=== PATIENT | female | born 1985 | race African-American/Black ===

== ENCOUNTER → 2017-09-26 | Outpatient (REF) | payer BC ==
[~2017-09-26] MED LIST: ATEN50TA2 PO; MACR100C43 PO
[2017-09-26 14:38] LABS: ALBUMIN 3.8 GM/DL (3.2-5.2); ALBUMIN/GLOBULIN RATIO 1.12 (1.00-1.93); ALKALINE PHOSPHATASE 91 U/L (45-117); ALT/SGPT 23 U/L (12-78); ANION GAP 9 MEQ/L (8-16); AST/SGOT 15 U/L (7-37); BILIRUBIN,TOTAL 0.4 MG/DL (0.2-1.0); BLOOD UREA NITROGEN 9 MG/DL (7-18); CALCIUM LEVEL 8.7 MG/DL (8.5-10.1); CARBON DIOXIDE LEVEL 24 MEQ/L (21-32); CHLORIDE LEVEL 108 MEQ/L (98-107); CHOLESTEROL LEVEL 172 MG/DL (<200); CREATININE FOR GFR 0.86 MG/DL (0.55-1.02); GLOMERULAR FILTRATION RATE > 60.0 (>60); GLUCOSE, FASTING 97 MG/DL (70-105); POTASSIUM SERUM 4.1 MEQ/L (3.5-5.1); SODIUM LEVEL 141 MEQ/L (136-145); TOTAL PROTEIN 7.2 GM/DL (6.4-8.2); TRIGLYCERIDES LEVEL 41 MG/DL (<150)
== END ==
LOC: M LAB REF 13:20
PROVIDERS: ATTEND Nurse Practitioner Adult Health
DX: Z13.9 Encounter for screening, unspecified (principal)

== ENCOUNTER → 2017-10-03 | Outpatient (REF) | payer BC | LOC: M LAB REF 16:35 | PROVIDERS: ATTEND Nurse Practitioner Adult Health | DX: N93.8 Other specified abnormal uterine and vaginal bleeding (principal) ==

== ENCOUNTER → 2017-10-08 | Outpatient (REF) | payer BC | LOC: M LAB REF 13:15 | PROVIDERS: ATTEND Nurse Practitioner Adult Health | DX: N93.8 Other specified abnormal uterine and vaginal bleeding (principal) ==

== ENCOUNTER → 2017-10-12 | Outpatient (CLI) | payer BC ==
--- NOTE | 2017-10-12 08:52 | REP ---
Clinical: Dating and viability. Technique: Transabdominal and transvaginal first trimester obstetrical ultrasound with color Doppler evaluation. Findings: Heterogeneous anteverted uterus measures 9.3 x 7.5 x 6.0 cm and includes right lateral subserosal fibroid measuring 4.6 x 4.4 x 4.6 cm. Endometrial complex is thickened to 19 mm. No discrete intrauterine identified. Maternal ovaries are normal in appearance and vascularity without torsion. Right ovary measures 2.5 x 1.4 x 2.0 cm; RI = 0.63. Left ovary measures 3.3 x 2.0 x 2.0 cm and includes 1.9 cm hemorrhagic corpus luteal cyst; RI = 0.56 no pelvic fluid or adnexal mass lesion. Impression: 1. Heterogeneous anteverted uterus with 4.6 cm right lateral fibroid. 2. No intrauterine appreciated. No pelvic fluid or adnexal mass lesion. Differential diagnosis includes recent , early and less likely ectopic . Correlation with serial HCG levels and repeat ultrasound as necessary. Signed by Leonel Guevara MD 10/12/2017 08:44 A
[2017-10-12 10:56] LABS: HCG, SERUM QUANTITATIVE 3812 MIU/ML
== END ==
LOC: M RAD 07:49
PROVIDERS: ATTEND Obstetrics & Gynecology
DX: Z36.87 Encounter for antenatal screening for uncertain dates (principal); N39.0 Urinary tract infection, site not specified

== ENCOUNTER → 2017-10-17 | Outpatient (CLI) | payer BC ==
--- NOTE | 2017-10-18 09:49 | REP ---
Clinical: Dating and viability. Technique: Transabdominal and transvaginal first trimester obstetrical ultrasound with color Doppler evaluation. Findings: Uterus measures approximately 9.9 x 6.4 x 7.8 cm and a 4.9 x 4.6 x 4.9 cm right lateral fundal fibroid is appreciated. Single live early intrauterine is appreciated. Gestational sac with yolk sac and pole identified. [place]-rump length of 2 mm corresponds to 5 weeks 5 days gestational age with estimated date of delivery 06/14/2018 . heart rate equals 83 beats per minute. No gross abnormalities are identified. Impression: 1. Single live early intrauterine at 5 weeks 5 days gestational age. 2. Mild bradycardia is noted and nonspecific. 3. Complete anatomical assessment should be performed and 19-20 weeks. 4. 4.9 cm right fundal fibroid. Signed by Leonel Guevara MD 10/18/2017 09:41 A
== END ==
LOC: M RAD 16:49
PROVIDERS: ATTEND Obstetrics & Gynecology
DX: Z36.87 Encounter for antenatal screening for uncertain dates (principal)

== ENCOUNTER → 2017-10-17 | Outpatient (CLI) | payer BC | LOC: M LAB 17:49 | PROVIDERS: ATTEND Obstetrics & Gynecology | DX: Z36.89 Encounter for other specified antenatal screening (principal) ==

== ENCOUNTER 2017-10-19 05:31 | Emergency (ER) | payer BC ==
[~2017-10-19] VITALS: Ht 162.6 cm; Wt 95.5 kg
[2017-10-19] MEDS ORDERED: NS 1,000 ML IV ONE (06:30)
[2017-10-19 06:43] LABS: BASO % 0.3 % (0.0-1.0); EOS # 0.1 10^3/uL (0.0-0.50); IMMATURE GRANULOCYTE % 0.3 % (0-0); LYMPH # 1.6 10^3/uL (1.5-4.5); LYMPH % 20.6 % (24.0-44.0); MEAN CORPUSCULAR HEMOGLOBIN 29.7 pg (27.0-33.0); MEAN CORPUSCULAR HGB CONC 33.2 g/dl (32.0-36.5); MEAN CORPUSCULAR VOLUME 89.6 fl (80.0-96.0); MONO # 0.7 10^3/uL (0.0-0.8); MONO % 8.5 % (0.0-5.0); NEUTROPHILS # 5.5 10^3/uL (1.8-7.7); NEUTROPHILS % 69.3 % (36.0-66.0); PLATELET COUNT, AUTOMATED 247 10^3/uL (150-450); RED CELL DISTRIBUTION WIDTH 13.2 % (11.5-14.5); WHITE BLOOD COUNT 7.9 10^3/uL (4.0-10.0)
[2017-10-19 07:07] LABS: ANION GAP 7 MEQ/L (8-16); BLOOD UREA NITROGEN 9 MG/DL (7-18); CALCIUM LEVEL 8.8 MG/DL (8.5-10.1); CARBON DIOXIDE LEVEL 27 MEQ/L (21-32); CHLORIDE LEVEL 107 MEQ/L (98-107); CREATININE FOR GFR 0.76 MG/DL (0.55-1.02); GLOMERULAR FILTRATION RATE > 60.0 (>60); GLUCOSE, FASTING 97 MG/DL (70-105); POTASSIUM SERUM 3.9 MEQ/L (3.5-5.1); SODIUM LEVEL 141 MEQ/L (136-145)
--- NOTE | 2017-10-19 08:08 | REP ---
Clinical: Early with spotting. Comparison: 10/17/2017. Technique: Transabdominal and transvaginal first trimester obstetrical ultrasound with color Doppler evaluation. Findings: Single live early intrauterine is appreciated. Gestational sac with yolk sac and pole identified. [place]-rump length of 2 mm corresponds to 5 weeks 5 days gestational age with estimated date of delivery 06/16/2018 . heart rate equals 96 beats per minute. No gross abnormalities are identified. Impression: 1. Single live early intrauterine at 5 weeks 5 days gestational age. 2. Complete anatomical assessment should be performed and 19-20 weeks. 3. A right fundal fibroid is again identified and unchanged. Signed by Leonel Guevara MD 10/19/2017 08:00 A
[2017-10-19 09:02] VITALS: BP 129/74
== END 2017-10-19 08:57 | disposition home or self-care (01) ==
LOC: EDBD 05:31 → M ED 05:31
DX: O99.89 Other specified diseases and conditions complicating pregnancy, childbirth and the puerperium (principal); R42 Dizziness and giddiness; Z87.891 Personal history of nicotine dependence; Z3A.01 Less than 8 weeks gestation of pregnancy; Z79.899 Other long term (current) drug therapy

== ENCOUNTER → 2017-10-23 | Outpatient (CLI) | payer BC ==
--- NOTE | 2017-10-23 15:14 | REP ---
Clinical: Dating and viability. History of bradycardia. Comparison: 10/19/2017. Technique: Transabdominal first trimester obstetrical ultrasound with color Doppler evaluation Findings: Single live early intrauterine is appreciated. Gestational sac with yolk sac and pole identified. [place]-rump length of 5 mm corresponds to 6 weeks 2 days gestational age with estimated date of delivery 06/16/2018 . heart rate equals 136 beats per minute. Incidental note is made of a 4.3 cm anterior fibroid. Impression: 1. Single live early intrauterine at 6 weeks 2 days gestational age. 2. Complete anatomical assessment should be performed and 19-20 weeks. 3. A 4.3 cm anterior fibroid identified. Signed by Leonel Guevara MD 10/23/2017 03:05 P
== END ==
LOC: M RAD 14:10
PROVIDERS: ATTEND Obstetrics & Gynecology
DX: Z34.81 Encounter for supervision of other normal pregnancy, first trimester (principal)

== ENCOUNTER → 2017-11-06 | Outpatient (CLI) | payer BC ==
--- NOTE | 2017-11-06 15:34 | REP ---
First trimester obstetric sonography: History: 8-week gestation supervision of . Comparison study October 23, 2017 showed a viable 7-wqul-4-day gestation and a 4.3 cm anterior uterine fibroid. Findings: Scanning through the urine filled bladder transabdominally demonstrates a viable single intrauterine gestation in a free-floating lie. [place]-rump length of the embryonic pole is 21 mm today corresponding with an 1-mmip-3-day gestational age estimate. heart rate is recorded at 157 beats per minute. No subchorionic hemorrhage is seen. No extrauterine abnormalities observed. The previously noted fibroid is seen anteriorly in the uterus measuring 4.2 x 4.6 x 4.7 cm. Impression: Viable single intrauterine gestation at 8 weeks 5 days by today's crown-rump length. Expected gestational age estimate based on prior sonography is 8 weeks 4 days. VERONIQUE by prior sonography June 14, 2018. 4.7 cm anterior uterine fibroid seen. No complication is identified. Signed by Dennis Hoskins MD 11/06/2017 04:03 P
== END ==
LOC: M RAD 12:37
PROVIDERS: ATTEND Obstetrics & Gynecology
DX: Z36.87 Encounter for antenatal screening for uncertain dates (principal)

== ENCOUNTER → 2017-11-12 | Outpatient (CLI) | payer BC ==
[~2017-11-12] MED LIST changes: +PRENTAB16 PO; +TERC0.4C PV
[2017-11-12 08:23] LABS: ALT/SGPT 29 U/L (12-78); AST/SGOT 18 U/L (7-37); BILIRUBIN,TOTAL 0.3 MG/DL (0.2-1.0); CREATININE FOR GFR 0.71 MG/DL (0.55-1.02); GLOMERULAR FILTRATION RATE > 60.0 (>60); URIC ACID 3.5 MG/DL (2.6-6.0)
[2017-11-12 11:35] LABS: HBsAg Prenatal NEGATIVE (NEGATIVE)
== END ==
LOC: M LAB 07:07
PROVIDERS: ATTEND Advanced Practice Midwife
DX: Z36.9 Encounter for antenatal screening, unspecified (principal)

== ENCOUNTER 2017-11-13 20:34 | Emergency (ER) | payer BC ==
[~2017-11-13] VITALS: Ht 157.5 cm; Wt 101.8 kg
[~2017-11-13 20:34] MED LIST changes: -PRENTAB16 PO; -TERC0.4C PV
[2017-11-13] MEDS ORDERED: PRENTAB16 PO (20:46)
[2017-11-13] MEDS ORDERED: TERC0.4C PV (20:46)
[2017-11-13 21:47] LABS: BASO % 0.4 % (0.0-1.0); EOS # 0.1 10^3/uL (0.0-0.50); EOS % 0.7 % (0.0-3.0); IMMATURE GRANULOCYTE % 0.1 % (0-0); LYMPH # 2.9 10^3/uL (1.5-4.5); LYMPH % 29.8 % (24.0-44.0); MEAN CORPUSCULAR HEMOGLOBIN 30.2 pg (27.0-33.0); MEAN CORPUSCULAR HGB CONC 34.1 g/dl (32.0-36.5); MEAN CORPUSCULAR VOLUME 88.7 fl (80.0-96.0); MONO # 0.9 10^3/uL (0.0-0.8); MONO % 9.2 % (0.0-5.0); NEUTROPHILS # 5.8 10^3/uL (1.8-7.7); NEUTROPHILS % 59.8 % (36.0-66.0); PLATELET COUNT, AUTOMATED 232 10^3/uL (150-450); RED CELL DISTRIBUTION WIDTH 13.5 % (11.5-14.5); WHITE BLOOD COUNT 9.7 10^3/uL (4.0-10.0)
[2017-11-13 22:24] LABS: ANION GAP 7 MEQ/L (8-16); BLOOD UREA NITROGEN 13 MG/DL (7-18); CALCIUM LEVEL 8.6 MG/DL (8.5-10.1); CARBON DIOXIDE LEVEL 24 MEQ/L (21-32); CHLORIDE LEVEL 108 MEQ/L (98-107); CREATININE FOR GFR 0.64 MG/DL (0.55-1.02); GLOMERULAR FILTRATION RATE > 60.0 (>60); GLUCOSE, FASTING 94 MG/DL (70-105); HCG, SERUM QUANTITATIVE 70766 MIU/ML; POTASSIUM SERUM 3.9 MEQ/L (3.5-5.1); SODIUM LEVEL 139 MEQ/L (136-145)
--- NOTE | 2017-11-13 22:50 | REPUSA ---
Clinical history: vaginal bleeding. Findings: Real-time transabdominal and transvaginal ultrasound images of the pelvis were obtained. Th ere is a single live intrauterine with the crown rump length of 2.8 centimeters. hear t rate measures 163 bpm. There is no evidence of a subchorionic hemorrhage. An anteverted uterus is n oted, measuring 5.0 x 4.3 x 4.6 cm. The uterus demonstrates normal echotexture and echogenicity. The right ovary measures 3.0 x 1.9 x 2.0 cm. The left ovary measures 3.2 x 2.5 x 2.3 cm. No adnexal allan s are seen. There is no evidence of free fluid. Impression: Single live intrauterine measuring 9 weeks 4 days, with estimated due date of . No gross abnormalities appreciated.
[2017-11-13 23:16] VITALS: BP 128/72
== END 2017-11-13 23:17 | disposition home or self-care (01) ==
LOC: M ED 20:34
DX: O20.0 Threatened abortion (principal); Z3A.09 9 weeks gestation of pregnancy; O99.341 Other mental disorders complicating pregnancy, first trimester; F41.9 Anxiety disorder, unspecified; O10.92 Unspecified pre-existing hypertension complicating childbirth; Z79.899 Other long term (current) drug therapy

== ENCOUNTER → 2017-11-28 | Outpatient (REF) | payer BC | LOC: M LAB REF 13:04 | DX: O10.011 Pre-existing essential hypertension complicating pregnancy, first trimester (principal) | CPT/HCPCS: 87086 ==

== ENCOUNTER 2017-12-02 10:30 | Emergency (ER) | payer BC ==
[2017-12-02] MEDS: METOCLOPRAMIDE INJ 10MG/2ML VIAL (J2765) IV (11:15)
[2017-12-02] MEDS: NS 1,000 ML IV (11:15)
[2017-12-02 11:27] LABS: KETONE, URINE AUTO RFX NEGATIVE (NEGATIVE); NITRITE, URINE AUTO RFX NEGATIVE (NEGATIVE); RBC, URINE AUTO RFX 0 /HPF (0-3); SPECIFIC GRAVITY UR AUTO RFX 1.005 (1.002-1.035); SQUAM EPITHELIAL CELL UR AURFX 1 /HPF (0-6); WBC, URINE AUTO RFX 1 /HPF (0-3)
[2017-12-02 11:28] LABS: LEUKOCYTE ESTERASE UR AUTO RFX TRACE (NEGATIVE)
[2017-12-02 11:53] LABS: ANION GAP 9 MEQ/L (8-16); BLOOD UREA NITROGEN 7 MG/DL (7-18); CALCIUM LEVEL 8.9 MG/DL (8.5-10.1); CARBON DIOXIDE LEVEL 24 MEQ/L (21-32); CHLORIDE LEVEL 107 MEQ/L (98-107); CREATININE FOR GFR 0.63 MG/DL (0.55-1.02); GLOMERULAR FILTRATION RATE > 60.0 (>60); GLUCOSE, FASTING 104 MG/DL (70-105); SODIUM LEVEL 140 MEQ/L (136-145)
== END 2017-12-02 12:54 | disposition home or self-care (01) ==
LOC: M ED 10:30
DX: O99.89 Other specified diseases and conditions complicating pregnancy, childbirth and the puerperium (principal); R11.2 Nausea with vomiting, unspecified; R19.7 Diarrhea, unspecified; Z3A.12 12 weeks gestation of pregnancy; Z79.899 Other long term (current) drug therapy
CPT/HCPCS: J2765

== ENCOUNTER 2017-12-12 17:42 | Emergency (ER) | payer BC ==
[2017-12-12] MEDS: METOCLOPRAMIDE 10 MG TAB PO (20:22)
[2017-12-12] MEDS: AZITHROMYCIN 250 MG TAB PO (20:23)
[2017-12-12] MEDS: ACETAMINOPHEN 325 MG TAB PO (20:23)
== END 2017-12-12 21:54 | disposition home or self-care (01) ==
LOC: M ED 21:54
DX: J01.90 Acute sinusitis, unspecified (principal); R11.2 Nausea with vomiting, unspecified; R50.9 Fever, unspecified; I10 Essential (primary) hypertension; F41.9 Anxiety disorder, unspecified; F32.9 Major depressive disorder, single episode, unspecified; R01.1 Cardiac murmur, unspecified; Z20.9 Contact with and (suspected) exposure to unspecified communicable disease
CPT/HCPCS: 99283

== ENCOUNTER → 2017-12-14 | Outpatient (CLI) | payer BC ==
[2017-12-18 08:17] LABS: MUMPS VIRUS IgG ANTIBODY <9.0 AU/mL (Immune >10.9)
[2017-12-18 08:17] LABS: RUBEOLA IgG ANTIBODY <25.0 AU/mL (Immune >29.9)
== END ==
LOC: M LAB 17:50
DX: Z34.81 Encounter for supervision of other normal pregnancy, first trimester (principal)
CPT/HCPCS: 86765

== ENCOUNTER 2017-12-24 13:44 | Emergency (ER) | payer SELFPAY, BC | END 2017-12-24 14:12 | disposition left against medical advice (07) | LOC: M ED 13:44 | DX: J00 Acute nasopharyngitis [common cold] (principal); Z53.21 Procedure and treatment not carried out due to patient leaving prior to being seen by health care provider ==

== ENCOUNTER → 2017-12-31 | Outpatient (CLI) | payer BC ==
[2017-12-31 11:18] LABS: BASO % 0.3 % (0.0-1.0); EOS % 0.4 % (0.0-3.0); HEMATOCRIT 39.3 % (36.0-47.0); HEMOGLOBIN 13.6 g/dl (12.0-16.0); IMMATURE GRANULOCYTE % 0.4 % (0-0); LYMPH # 1.6 10^3/uL (1.5-4.5); LYMPH % 22.8 % (24.0-44.0); MEAN CORPUSCULAR HEMOGLOBIN 31.1 pg (27.0-33.0); MEAN CORPUSCULAR HGB CONC 34.6 g/dl (32.0-36.5); MEAN CORPUSCULAR VOLUME 89.7 fl (80.0-96.0); MONO # 0.4 10^3/uL (0.0-0.8); MONO % 6.2 % (0.0-5.0); NEUTROPHILS # 4.9 10^3/uL (1.8-7.7); NEUTROPHILS % 69.9 % (36.0-66.0); PLATELET COUNT, AUTOMATED 221 10^3/uL (150-450); RED BLOOD COUNT 4.38 10^6/uL (4.00-5.40); RED CELL DISTRIBUTION WIDTH 12.9 % (11.5-14.5)
[2017-12-31 11:32] LABS: INR 1.01; PROTHROMBIN TIME 13.4 SECONDS (12.4-14.5)
[2018-01-03 00:07] LABS: H PYLORI STOOL ANTIGEN Positive (Negative)
== END ==
LOC: M LAB 10:14
DX: P54.8 Other specified neonatal hemorrhages (principal); R19.7 Diarrhea, unspecified; K30 Functional dyspepsia
CPT/HCPCS: 85610

== ENCOUNTER → 2018-01-02 | Outpatient (REF) | payer BC | LOC: M LAB REF 13:07 | DX: Z34.82 Encounter for supervision of other normal pregnancy, second trimester (principal); Z3A.00 Weeks of gestation of pregnancy not specified ==

== ENCOUNTER → 2018-01-23 | Outpatient (CLI) | payer BC | LOC: M RAD 10:45 | DX: Z34.02 Encounter for supervision of normal first pregnancy, second trimester (principal) ==

== ENCOUNTER 2018-02-10 14:07 | Emergency (ER) | payer OTHER ==
[2018-02-10] MEDS: ONDANSETRON 4MG/2ML VIAL (J2405) IV (15:34)
[2018-02-10] MEDS: NS 1,000 ML IV (15:34)
[2018-02-10 15:39] LABS: BASO % 0.2 % (0.0-1.0); EOS # 0.1 10^3/uL (0.0-0.50); EOS % 0.8 % (0.0-3.0); HEMATOCRIT 38.1 % (36.0-47.0); HEMOGLOBIN 13.3 g/dl (12.0-16.0); IMMATURE GRANULOCYTE % 0.5 % (0-3.0); LYMPH # 1.7 10^3/uL (1.5-4.5); LYMPH % 20.7 % (24.0-44.0); MEAN CORPUSCULAR HEMOGLOBIN 31.7 pg (27.0-33.0); MEAN CORPUSCULAR HGB CONC 34.9 g/dl (32.0-36.5); MEAN CORPUSCULAR VOLUME 90.9 fl (80.0-96.0); MONO # 0.8 10^3/uL (0.0-0.8); MONO % 9.8 % (0.0-5.0); NEUTROPHILS # 5.7 10^3/uL (1.8-7.7); PLATELET COUNT, AUTOMATED 222 10^3/uL (150-450); RED BLOOD COUNT 4.19 10^6/uL (4.00-5.40); RED CELL DISTRIBUTION WIDTH 13.2 % (11.5-14.5); WHITE BLOOD COUNT 8.4 10^3/uL (4.0-10.0)
[2018-02-10 15:42] LABS: KETONE, URINE AUTO RFX NEGATIVE (NEGATIVE); LEUKOCYTE ESTERASE UR AUTO RFX NEGATIVE (NEGATIVE); NITRITE, URINE AUTO RFX NEGATIVE (NEGATIVE); RBC, URINE AUTO RFX 1 /HPF (0-3); SPECIFIC GRAVITY UR AUTO RFX 1.003 (1.002-1.035); SQUAM EPITHELIAL CELL UR AURFX 1 /HPF (0-6); WBC, URINE AUTO RFX 0 /HPF (0-3)
[2018-02-10 15:57] LABS: ALBUMIN 2.8 GM/DL (3.2-5.2); ALBUMIN/GLOBULIN RATIO 0.76 (1.00-1.93); ALKALINE PHOSPHATASE 86 U/L (45-117); ALT/SGPT 33 U/L (12-78); ANION GAP 8 MEQ/L (8-16); AST/SGOT 20 U/L (7-37); BILIRUBIN,DIRECT < 0.1 MG/DL (0.0-0.2); BILIRUBIN,TOTAL 0.2 MG/DL (0.2-1.0); BLOOD UREA NITROGEN 5 MG/DL (7-18); CALCIUM LEVEL 8.2 MG/DL (8.5-10.1); CARBON DIOXIDE LEVEL 23 MEQ/L (21-32); CHLORIDE LEVEL 109 MEQ/L (98-107); CREATININE FOR GFR 0.63 MG/DL (0.55-1.30); GLOMERULAR FILTRATION RATE > 60.0 (>60); GLUCOSE, FASTING 89 MG/DL (70-100); LIPASE 128 U/L (73-393); POTASSIUM SERUM 3.8 MEQ/L (3.5-5.1); SODIUM LEVEL 140 MEQ/L (136-145); TOTAL PROTEIN 6.5 GM/DL (6.4-8.2)
[2018-02-10 15:58] LABS: LACTIC ACID SEPSIS PROTOCOL 0.9 MMOL/L (0.4-2.0)
== END 2018-02-10 17:42 | disposition home or self-care (01) ==
LOC: M ED 14:07
DX: O21.9 Vomiting of pregnancy, unspecified (principal); O10.012 Pre-existing essential hypertension complicating pregnancy, second trimester; Z83.49 Family history of other endocrine, nutritional and metabolic diseases; Z82.49 Family history of ischemic heart disease and other diseases of the circulatory system; Z3A.22 22 weeks gestation of pregnancy; Z79.899 Other long term (current) drug therapy
CPT/HCPCS: J2405

== ENCOUNTER → 2018-02-14 | Outpatient (CLI) | payer OTHER | LOC: M RAD 17:40 | DX: O34.12 Maternal care for benign tumor of corpus uteri, second trimester (principal); Z3A.22 22 weeks gestation of pregnancy; D25.9 Leiomyoma of uterus, unspecified | CPT/HCPCS: 76816 ==

== ENCOUNTER 2018-02-18 19:47 | Outpatient (CLI) | payer OTHER, MEDICAID | END 2018-02-18 21:40 | disposition home or self-care (01) | LOC: M LDO 19:47 | DX: O47.02 False labor before 37 completed weeks of gestation, second trimester (principal); Z3A.23 23 weeks gestation of pregnancy | CPT/HCPCS: 76815 ==

== ENCOUNTER → 2018-03-14 | Outpatient (CLI) | payer OTHER, MEDICAID ==
[2018-03-14 08:45] LABS: GLUCOSE, FASTING 90 MG/DL (LESS THAN 95)
[2018-03-14 09:42] LABS: 1 HR GLUCOSE 172 MG/DL (LESS THAN 180)
[2018-03-14 11:17] LABS: 2 HR GLUCOSE 146 MG/DL (LESS THAN 155)
[2018-03-14 12:51] LABS: 3 HR GLUCOSE 109 MG/DL (LESS THAN 140)
== END ==
LOC: M LAB 07:59
DX: O10.012 Pre-existing essential hypertension complicating pregnancy, second trimester (principal); Z3A.00 Weeks of gestation of pregnancy not specified
CPT/HCPCS: 82951

== ENCOUNTER 2018-03-15 00:09 | Outpatient (CLI) | payer OTHER, MEDICAID ==
[2018-03-15 01:31] LABS: HEMATOCRIT 35.5 % (36.0-47.0); HEMOGLOBIN 12.4 g/dl (12.0-15.5); MEAN CORPUSCULAR HEMOGLOBIN 32.2 pg (27.0-33.0); MEAN CORPUSCULAR HGB CONC 34.9 g/dl (32.0-36.5); MEAN CORPUSCULAR VOLUME 92.2 fl (80.0-96.0); PLATELET COUNT, AUTOMATED 232 10^3/uL (150-450); RED BLOOD COUNT 3.85 10^6/uL (4.00-5.40); RED CELL DISTRIBUTION WIDTH 12.9 % (11.5-14.5); WHITE BLOOD COUNT 9.6 10^3/uL (4.0-10.0)
[2018-03-15] MEDS: OMEPRAZOLE 20 MG CAP PO (01:42)
[2018-03-15 01:47] LABS: ALBUMIN 2.9 GM/DL (3.2-5.2); ALBUMIN/GLOBULIN RATIO 0.78 (1.00-1.93); ALKALINE PHOSPHATASE 101 U/L (45-117); ALT/SGPT 20 U/L (12-78); AMYLASE 75 U/L (25-115); ANION GAP 9 MEQ/L (8-16); AST/SGOT 16 U/L (7-37); BILIRUBIN,TOTAL 0.4 MG/DL (0.2-1.0); BLOOD UREA NITROGEN 8 MG/DL (7-18); CALCIUM LEVEL 9.1 MG/DL (8.5-10.1); CARBON DIOXIDE LEVEL 23 MEQ/L (21-32); CHLORIDE LEVEL 107 MEQ/L (98-107); CREATININE FOR GFR 0.72 MG/DL (0.55-1.30); GLOMERULAR FILTRATION RATE > 60.0 (>60); GLUCOSE, FASTING 82 MG/DL (70-100); LIPASE 124 U/L (73-393); POTASSIUM SERUM 3.8 MEQ/L (3.5-5.1); SODIUM LEVEL 139 MEQ/L (136-145); TOTAL PROTEIN 6.6 GM/DL (6.4-8.2)
== END 2018-03-15 02:08 | disposition home or self-care (01) ==
LOC: M LDO 00:09
DX: O99.89 Other specified diseases and conditions complicating pregnancy, childbirth and the puerperium (principal); R10.13 Epigastric pain; Z3A.26 26 weeks gestation of pregnancy
CPT/HCPCS: 59025

== ENCOUNTER → 2018-03-22 | Outpatient (CLI) | payer OTHER | LOC: M RAD 09:51 | DX: Z34.82 Encounter for supervision of other normal pregnancy, second trimester (principal) | CPT/HCPCS: 76816 ==

== ENCOUNTER → 2018-04-11 | Outpatient (CLI) | payer OTHER | LOC: M SMT 10:42 | DX: O10.012 Pre-existing essential hypertension complicating pregnancy, second trimester (principal); Z3A.31 31 weeks gestation of pregnancy | CPT/HCPCS: 76816 ==

== ENCOUNTER → 2018-04-18 | Outpatient (CLI) | payer OTHER ==
[2018-04-18 17:21] LABS: ALBUMIN 2.7 GM/DL (3.2-5.2); ALBUMIN/GLOBULIN RATIO 0.77 (1.00-1.93); ALKALINE PHOSPHATASE 141 U/L (45-117); ALT/SGPT 19 U/L (12-78); AST/SGOT 13 U/L (7-37); BILIRUBIN,DIRECT < 0.1 MG/DL (0.0-0.2); BILIRUBIN,TOTAL 0.3 MG/DL (0.2-1.0); TOTAL PROTEIN 6.2 GM/DL (6.4-8.2)
[2018-04-18 17:25] LABS: APPEARANCE, URINE HAZY (CLEAR); BACTERIA, URINE AUTO 1+ (NEGATIVE); BILIRUBIN, URINE AUTO NEGATIVE (NEGATIVE); BLOOD, URINE BLOOD NEGATIVE (NEGATIVE); COLOR, URINE STRAW (YELLOW); GLUCOSE, URINE (UA) AUTO NEGATIVE (NEGATIVE); KETONE, URINE AUTO NEGATIVE (NEGATIVE); LEUKOCYTE ESTERASE, URINE AUTO NEGATIVE (NEGATIVE); MUCUS, URINE SMALL (NEGATIVE); NITRITE, URINE AUTO NEGATIVE (NEGATIVE); PROTEIN, URINE AUTO NEGATIVE (NEGATIVE); RBC, URINE AUTO 2 /HPF (0-3); SPECIFIC GRAVITY URINE AUTO 1.006 (1.002-1.035); SQUAMOUS EPITHELIAL CELL UR AU 5 /HPF (0-6); UROBILINOGEN, URINE AUTO 0.2 mg/dL (0.0-2.0); WBC, URINE AUTO 2 /HPF (0-3)
[2018-04-21 00:06] LABS: BILE ACIDS FRACTIONATED 11.3 umol/L (4.7-24.5)
== END ==
LOC: M LAB 16:12
DX: O10.012 Pre-existing essential hypertension complicating pregnancy, second trimester (principal); Z3A.00 Weeks of gestation of pregnancy not specified
CPT/HCPCS: 80076

== ENCOUNTER → 2018-04-30 | Outpatient (CLI) | payer OTHER | LOC: M SMT 13:24 | DX: O10.012 Pre-existing essential hypertension complicating pregnancy, second trimester (principal); Z3A.33 33 weeks gestation of pregnancy; D25.9 Leiomyoma of uterus, unspecified; O34.12 Maternal care for benign tumor of corpus uteri, second trimester | CPT/HCPCS: 76816 ==

== ENCOUNTER → 2018-05-06 | Outpatient (CLI) | payer OTHER | LOC: M SMT 11:39 | DX: O10.013 Pre-existing essential hypertension complicating pregnancy, third trimester (principal); O26.613 Liver and biliary tract disorders in pregnancy, third trimester; Z3A.34 34 weeks gestation of pregnancy | CPT/HCPCS: 76819 ==

== ENCOUNTER → 2018-05-13 | Outpatient (CLI) | payer OTHER ==
[2018-05-13] MEDS: BETAMETHASONE SOLUSPAN 6MG/ML INJ 5ML (J0702) IM (16:43)
[2018-05-13 17:09] LABS: HEMATOCRIT 34.7 % (36.0-47.0); MEAN CORPUSCULAR HEMOGLOBIN 31.2 pg (27.0-33.0); MEAN CORPUSCULAR HGB CONC 34.6 g/dl (32.0-36.5); MEAN CORPUSCULAR VOLUME 90.1 fl (80.0-96.0); PLATELET COUNT, AUTOMATED 181 10^3/uL (150-450); RED BLOOD COUNT 3.85 10^6/uL (4.00-5.40); RED CELL DISTRIBUTION WIDTH 12.5 % (11.5-14.5)
[2018-05-13 17:39] LABS: CREATININE,RANDOM URINE 33.3 MG/DL
[2018-05-13 17:39] LABS: ALBUMIN 2.5 GM/DL (3.2-5.2); ALBUMIN/GLOBULIN RATIO 0.69 (1.00-1.93); ALKALINE PHOSPHATASE 155 U/L (45-117); ALT/SGPT 21 U/L (12-78); ANION GAP 12 MEQ/L (8-16); AST/SGOT 12 U/L (7-37); BILIRUBIN,TOTAL 0.2 MG/DL (0.2-1.0); BLOOD UREA NITROGEN 9 MG/DL (7-18); CALCIUM LEVEL 8.9 MG/DL (8.5-10.1); CARBON DIOXIDE LEVEL 20 MEQ/L (21-32); CHLORIDE LEVEL 110 MEQ/L (98-107); GLOMERULAR FILTRATION RATE > 60.0 (>60); GLUCOSE, FASTING 78 MG/DL (70-100); LDH LACTATE DEHYDROGENASE 211 U/L (84-246); POTASSIUM SERUM 4.1 MEQ/L (3.5-5.1); SODIUM LEVEL 142 MEQ/L (136-145); TOTAL PROTEIN 6.1 GM/DL (6.4-8.2); TOTAL PROTEIN,RANDOM URINE 8.8 MG/DL (0.0-12.0); URIC ACID 4.3 MG/DL (2.6-6.0)
== END ==
LOC: M LDO 15:28
DX: O16.3 Unspecified maternal hypertension, third trimester (principal); O36.8130 Decreased fetal movements, third trimester, not applicable or unspecified; O09.513 Supervision of elderly primigravida, third trimester; O34.13 Maternal care for benign tumor of corpus uteri, third trimester; Z3A.35 35 weeks gestation of pregnancy
CPT/HCPCS: J0702

== ENCOUNTER → 2018-05-13 | Outpatient (REF) | payer OTHER | LOC: M LAB REF 16:53 | DX: O10.013 Pre-existing essential hypertension complicating pregnancy, third trimester (principal) ==

== ENCOUNTER 2018-05-14 16:45 | Outpatient (CLI) | payer OTHER ==
[2018-05-14] MEDS: BETAMETHASONE SOLUSPAN 6MG/ML INJ 5ML (J0702) IM (17:13)
== END 2018-05-14 18:15 | disposition home or self-care (01) ==
LOC: M LDO 16:45
DX: O10.013 Pre-existing essential hypertension complicating pregnancy, third trimester (principal); Z3A.35 35 weeks gestation of pregnancy
CPT/HCPCS: J0702

== ENCOUNTER 2018-05-18 21:10 | Outpatient (CLI) | payer OTHER ==
[2018-05-18 22:11] LABS: HEMATOCRIT 32.8 % (36.0-47.0); HEMOGLOBIN 11.5 g/dl (12.0-15.5); MEAN CORPUSCULAR HEMOGLOBIN 31.3 pg (27.0-33.0); MEAN CORPUSCULAR HGB CONC 35.1 g/dl (32.0-36.5); MEAN CORPUSCULAR VOLUME 89.4 fl (80.0-96.0); PLATELET COUNT, AUTOMATED 184 10^3/uL (150-450); RED BLOOD COUNT 3.67 10^6/uL (4.00-5.40); RED CELL DISTRIBUTION WIDTH 12.6 % (11.5-14.5); WHITE BLOOD COUNT 10.1 10^3/uL (4.0-10.0)
[2018-05-18 22:20] LABS: TOTAL PROTEIN,RANDOM URINE 31.9 MG/DL (0.0-12.0)
[2018-05-18 22:35] LABS: ALT/SGPT 16 U/L (12-78); AMYLASE 81 U/L (25-115); AST/SGOT 9 U/L (7-37); BILIRUBIN,TOTAL 0.3 MG/DL (0.2-1.0); CREATININE FOR GFR 0.78 MG/DL (0.55-1.30); GLOMERULAR FILTRATION RATE > 60.0 (>60); LDH LACTATE DEHYDROGENASE 212 U/L (84-246); LIPASE 214 U/L (73-393); URIC ACID 4.3 MG/DL (2.6-6.0)
[2018-05-18] MEDS: ACETAMINOPHEN 500 MG TAB PO (22:35)
== END 2018-05-19 01:05 | disposition home or self-care (01) ==
LOC: M LDO 21:10
DX: O26.893 Other specified pregnancy related conditions, third trimester (principal); R51 Headache; Z3A.35 35 weeks gestation of pregnancy
CPT/HCPCS: 76815

== ENCOUNTER 2018-05-21 05:34 | Inpatient (IN) | payer OTHER ==
[2018-05-21] MEDS: LR 1,000 ML IV ×4 (06:00→18:54)
[2018-05-21] MEDS: BICITRA 30ML SOLN UDC PO (06:00)
[2018-05-21 06:45] LABS: HEMATOCRIT 35.3 % (36.0-47.0); HEMOGLOBIN 12.1 g/dl (12.0-15.5); MEAN CORPUSCULAR HEMOGLOBIN 30.9 pg (27.0-33.0); MEAN CORPUSCULAR HGB CONC 34.3 g/dl (32.0-36.5); MEAN CORPUSCULAR VOLUME 90.3 fl (80.0-96.0); PLATELET COUNT, AUTOMATED 181 10^3/uL (150-450); RED BLOOD COUNT 3.91 10^6/uL (4.00-5.40); RED CELL DISTRIBUTION WIDTH 12.7 % (11.5-14.5); WHITE BLOOD COUNT 9.5 10^3/uL (4.0-10.0)
[2018-05-21] MEDS ORDERED: LR 1,000 ML IV (07:00)
[2018-05-21] MEDS ORDERED: MORPHINE PRES-FREE INJ 10 MG/10 ML VIAL (J2274) As Ordered (07:42)
[2018-05-21] MEDS ORDERED: OXYTOCIN INJ 10 UNITS/ML VIAL (J2590) As Ordered ×6 (07:43→09:56)
[2018-05-21] MEDS ORDERED: NALOXONE INJ 0.4 MG/1 ML VIAL (J2310) IV ×2 (08:21)
[2018-05-21] MEDS ORDERED: NALBUPHINE HCL 10 MG/ML AMP (J2300) IV (08:21)
[2018-05-21] MEDS ORDERED: ePHEDrine SULFATE 25 MG/5 ML(5MG/ML) SYRINGE As Ordered (08:31)
[2018-05-21] MEDS: PRENATAL VITAMINS CHEWABLE TABLET PO (09:00)
[2018-05-21] MEDS: DOCUSATE SODIUM 100 MG CAP PO ×2 (09:00→21:35)
[2018-05-21] MEDS ORDERED: MIDAZOLAM INJ 2 MG/2 ML VIAL (J2250) As Ordered (09:14)
[2018-05-21] MEDS ORDERED: KETAMINE HCL 200 MG/20 ML VIAL As Ordered (09:14)
[2018-05-21] MEDS ORDERED: fentaNYL 100 MCG/2 ML INJECTION (J3010) As Ordered ×2 (09:20→10:50)
[2018-05-21 09:38] LABS: CORD GAS ABE V 1.4; CORD GAS HCO3 V 27.9 MEQ/L; CORD GAS O2 SAT V 68.9 %; CORD GAS PCO2 V 50.4 mmHg; CORD GAS PH V 7.361 UNITS; CORD GAS PO2 V 28.6 mmHg; CORD GAS SBC V 24.8 MEQ/L; CORD GAS TCO2 V 29.4 MEQ/L
[2018-05-21] MEDS ORDERED: PROPOFOL 200 MG/20 ML VIAL As Ordered (09:51)
[2018-05-21] MEDS: OXYTOCIN DRIP 30 UNITS in APPROPRIATE DILUENT 1 EA IV (10:59)
[2018-05-21] MEDS ORDERED: PROMETHAZINE 25 MG TAB PO (11:00)
[2018-05-21] MEDS ORDERED: RHOGAM 300 MCG (1500 IU) INJ (J2790) IM (11:00)
[2018-05-21] MEDS ORDERED: MEASLES,MUMPS,RUBELLA VACCINE INJ (MMR-II) (90707) SC (11:00)
[2018-05-21] MEDS ORDERED: ONDANSETRON 4MG/2ML VIAL (J2405) IV ×2 (11:00→11:15)
[2018-05-21] MEDS ORDERED: PERCOCET 5MG/325MG TAB PO ×2 (11:00→11:15)
[2018-05-21] MEDS ORDERED: METOCLOPRAMIDE INJ 10MG/2ML VIAL (J2765) IV (11:15)
[2018-05-21] MEDS ORDERED: fentaNYL 100 MCG/2 ML INJECTION (J3010) IV (11:15)
[2018-05-21] MEDS ORDERED: KETOROLAC 30 MG/ML VIAL (J1885) As Ordered (11:45)
[2018-05-21] MEDS: KETOROLAC 30 MG/ML VIAL (J1885) IV ×3 (11:50→22:20)
[2018-05-21] MEDS: METOCLOPRAMIDE INJ 10MG/2ML VIAL (J2765) IV (14:30)
[2018-05-21] MEDS: ONDANSETRON 4MG/2ML VIAL (J2405) IV (16:29)
[2018-05-21 18:31] LABS: HEMATOCRIT 31.5 % (36.0-47.0); HEMOGLOBIN 10.7 g/dl (12.0-15.5); MEAN CORPUSCULAR HEMOGLOBIN 31.3 pg (27.0-33.0); MEAN CORPUSCULAR VOLUME 92.1 fl (80.0-96.0); PLATELET COUNT, AUTOMATED 156 10^3/uL (150-450); RED BLOOD COUNT 3.42 10^6/uL (4.00-5.40); RED CELL DISTRIBUTION WIDTH 13.1 % (11.5-14.5); WHITE BLOOD COUNT 15.4 10^3/uL (4.0-10.0)
[2018-05-21] MEDS: PROMETHAZINE INJ 25 MG/ML VIAL (J2550) IV (19:30)
[2018-05-21] MEDS: PERCOCET 5MG/325MG TAB PO (21:35)
[2018-05-22] MEDS: PROMETHAZINE INJ 25 MG/ML VIAL (J2550) IV (01:37)
[2018-05-22] MEDS: LR 1,000 ML IV ×3 (02:45→10:54)
[2018-05-22] MEDS: KETOROLAC 30 MG/ML VIAL (J1885) IV (04:46)
[2018-05-22 07:18] LABS: HEMATOCRIT 24.6 % (36.0-47.0); MEAN CORPUSCULAR HEMOGLOBIN 30.8 pg (27.0-33.0); MEAN CORPUSCULAR HGB CONC 33.3 g/dl (32.0-36.5); MEAN CORPUSCULAR VOLUME 92.5 fl (80.0-96.0); PLATELET COUNT, AUTOMATED 142 10^3/uL (150-450); RED BLOOD COUNT 2.66 10^6/uL (4.00-5.40); RED CELL DISTRIBUTION WIDTH 13.2 % (11.5-14.5); WHITE BLOOD COUNT 12.7 10^3/uL (4.0-10.0)
[2018-05-22 07:26] LABS: HEMOGLOBIN 8.2 g/dl (12.0-15.5)
[2018-05-22] MEDS: LABETALOL 100 MG TAB PO ×2 (09:00→21:00)
[2018-05-22] MEDS: DOCUSATE SODIUM 100 MG CAP PO ×2 (09:20→21:07)
[2018-05-22] MEDS: FERROUS SULFATE 325MG TAB PO ×2 (09:20→21:08)
[2018-05-22] MEDS: PRENATAL VITAMINS CHEWABLE TABLET PO (09:20)
[2018-05-22] MEDS: PERCOCET 5MG/325MG TAB PO ×2 (09:21→15:11)
[2018-05-22] MEDS: IBUPROFEN 800 MG TAB PO ×2 (13:13→21:08)
[2018-05-22] MEDS: diphenhydrAMINE 50 MG CAP PO (23:30)
[2018-05-22] MEDS: ACETAMINOPHEN TAB 650MG DOSE (2X325MG) PO (23:30)
[2018-05-22 23:38] LABS: IMMEDIATE SPIN CROSSMATCH 1 2
[2018-05-23] MEDS: PERCOCET 5MG/325MG TAB PO ×2 (04:58→10:41)
[2018-05-23 06:43] LABS: HEMATOCRIT 26.3 % (36.0-47.0); HEMOGLOBIN 8.9 g/dl (12.0-15.5); MEAN CORPUSCULAR HEMOGLOBIN 30.4 pg (27.0-33.0); MEAN CORPUSCULAR HGB CONC 33.8 g/dl (32.0-36.5); MEAN CORPUSCULAR VOLUME 89.8 fl (80.0-96.0); PLATELET COUNT, AUTOMATED 127 10^3/uL (150-450); RED BLOOD COUNT 2.93 10^6/uL (4.00-5.40); RED CELL DISTRIBUTION WIDTH 14.3 % (11.5-14.5); WHITE BLOOD COUNT 12.4 10^3/uL (4.0-10.0)
[2018-05-23] MEDS: PRENATAL VITAMINS CHEWABLE TABLET PO (07:51)
[2018-05-23] MEDS: DOCUSATE SODIUM 100 MG CAP PO ×2 (07:51→21:12)
[2018-05-23] MEDS: LABETALOL 100 MG TAB PO ×2 (07:51→21:13)
[2018-05-23] MEDS: FERROUS SULFATE 325MG TAB PO ×2 (07:51→21:12)
[2018-05-23] MEDS: IBUPROFEN 800 MG TAB PO ×2 (07:52→18:20)
[2018-05-24] MEDS: PERCOCET 5MG/325MG TAB PO ×2 (05:31→13:05)
[2018-05-24] MEDS: LABETALOL HCL 100 MG/20 ML VIAL IV ×2 (06:44→07:18)
[2018-05-24 08:28] LABS: HEMATOCRIT 30.8 % (36.0-47.0); HEMOGLOBIN 10.4 g/dl (12.0-15.5); MEAN CORPUSCULAR HEMOGLOBIN 30.8 pg (27.0-33.0); MEAN CORPUSCULAR HGB CONC 33.8 g/dl (32.0-36.5); MEAN CORPUSCULAR VOLUME 91.1 fl (80.0-96.0); PLATELET COUNT, AUTOMATED 186 10^3/uL (150-450); RED BLOOD COUNT 3.38 10^6/uL (4.00-5.40); RED CELL DISTRIBUTION WIDTH 14.7 % (11.5-14.5); WHITE BLOOD COUNT 11.9 10^3/uL (4.0-10.0)
[2018-05-24] MEDS: LABETALOL 200 MG TAB PO ×2 (08:36→17:55)
[2018-05-24] MEDS: DOCUSATE SODIUM 100 MG CAP PO ×2 (08:36→21:07)
[2018-05-24] MEDS: FERROUS SULFATE 325MG TAB PO ×2 (08:36→21:07)
[2018-05-24] MEDS: PRENATAL VITAMINS CHEWABLE TABLET PO (08:36)
[2018-05-24] MEDS: IBUPROFEN 800 MG TAB PO ×2 (08:37→18:25)
[2018-05-24 08:45] LABS: ALT/SGPT 18 U/L (12-78); AST/SGOT 18 U/L (7-37); BILIRUBIN,TOTAL 0.4 MG/DL (0.2-1.0); CREATININE FOR GFR 0.73 MG/DL (0.55-1.30); GLOMERULAR FILTRATION RATE > 60.0 (>60); LDH LACTATE DEHYDROGENASE 309 U/L (84-246); URIC ACID 5.3 MG/DL (2.6-6.0)
[2018-05-24] MEDS: hydrOXYzine 25 MG TAB PO (17:54)
[2018-05-24] MEDS: SERTRALINE HCL 50 MG TAB PO (18:24)
[2018-05-24] MEDS ORDERED: diphenhydrAMINE 50 MG CAP PO (21:00)
[2018-05-24] MEDS: hydrOXYzine 50 MG TAB PO (21:34)
[2018-05-25] MEDS: busPIRone 5 MG TAB PO (09:00)
[2018-05-25] MEDS: PRENATAL VITAMINS CHEWABLE TABLET PO (09:06)
[2018-05-25] MEDS: FERROUS SULFATE 325MG TAB PO ×2 (09:06→21:04)
[2018-05-25] MEDS: DOCUSATE SODIUM 100 MG CAP PO ×2 (09:06→21:04)
[2018-05-25] MEDS: LABETALOL 200 MG TAB PO ×2 (09:07→21:09)
[2018-05-25] MEDS: SERTRALINE HCL 50 MG TAB PO (09:07)
[2018-05-25] MEDS: IBUPROFEN 800 MG TAB PO ×2 (09:11→18:20)
[2018-05-25] MEDS: hydrOXYzine 50 MG TAB PO (21:04)
[2018-05-26] MEDS: FERROUS SULFATE 325MG TAB PO (09:00)
[2018-05-26] MEDS: LABETALOL 200 MG TAB PO (09:00)
[2018-05-26] MEDS: DOCUSATE SODIUM 100 MG CAP PO (09:00)
[2018-05-26] MEDS: PRENATAL VITAMINS CHEWABLE TABLET PO (09:00)
[2018-05-26] MEDS: busPIRone 5 MG TAB PO (09:00)
[2018-05-26] MEDS: IBUPROFEN 800 MG TAB PO (09:11)
== END 2018-05-26 12:20 | disposition home or self-care (01) | DRG 765 ==
LOC: M LDI 05:34 → M OBS 13:32
PROVIDERS: Obstetrics & Gynecology
PROC: 10D00Z0 Extraction of Products of Conception, High, Open Approach (ICD-10-PCS; principal; 2018-05-21 08:00)
PROC: 0UB90ZZ Excision of Uterus, Open Approach (ICD-10-PCS; 2018-05-21 08:00)
DX: O26.62 Liver and biliary tract disorders in childbirth (principal); K83.1 Obstruction of bile duct; Z68.41 Body mass index [BMI] 40.0-44.9, adult; O16.4 Unspecified maternal hypertension, complicating childbirth; Z3A.36 36 weeks gestation of pregnancy; E66.9 Obesity, unspecified; O99.214 Obesity complicating childbirth; D25.0 Submucous leiomyoma of uterus; O34.13 Maternal care for benign tumor of corpus uteri, third trimester; O09.523 Supervision of elderly multigravida, third trimester

== ENCOUNTER → 2018-10-24 | Outpatient (REF) | payer OTHER, MEDICAID ==
[2018-10-24 18:21] LABS: BASO % 0.6 % (0.0-1.0); EOS # 0.1 10^3/uL (0.0-0.50); EOS % 0.8 % (0.0-3.0); HEMATOCRIT 42.5 % (36.0-47.0); IMMATURE GRANULOCYTE % 0.3 % (0-3.0); LYMPH # 2.6 10^3/uL (1.5-4.5); LYMPH % 40.6 % (24.0-44.0); MEAN CORPUSCULAR HEMOGLOBIN 29.7 pg (27.0-33.0); MEAN CORPUSCULAR HGB CONC 32.9 g/dl (32.0-36.5); MEAN CORPUSCULAR VOLUME 90.2 fl (80.0-96.0); MONO # 0.6 10^3/uL (0.0-0.8); MONO % 9.3 % (0.0-5.0); NEUTROPHILS # 3.1 10^3/uL (1.8-7.7); NEUTROPHILS % 48.4 % (36.0-66.0); PLATELET COUNT, AUTOMATED 331 10^3/uL (150-450); RED BLOOD COUNT 4.71 10^6/uL (4.00-5.40); RED CELL DISTRIBUTION WIDTH 12.3 % (11.5-14.5); WHITE BLOOD COUNT 6.5 10^3/uL (4.0-10.0)
[2018-10-24 18:30] LABS: ALBUMIN 3.7 GM/DL (3.2-5.2); ALBUMIN/GLOBULIN RATIO 1.16 (1.00-1.93); ALKALINE PHOSPHATASE 98 U/L (45-117); ALT/SGPT 22 U/L (12-78); ANION GAP 10 MEQ/L (8-16); AST/SGOT 14 U/L (7-37); BILIRUBIN,TOTAL 0.4 MG/DL (0.2-1.0); BLOOD UREA NITROGEN 14 MG/DL (7-18); CALCIUM LEVEL 8.5 MG/DL (8.5-10.1); CARBON DIOXIDE LEVEL 25 MEQ/L (21-32); CHLORIDE LEVEL 106 MEQ/L (98-107); CHOLESTEROL LEVEL 188 MG/DL (<200); CHOLESTEROL RISK RATIO 3.032 (<5); CREATININE FOR GFR 0.78 MG/DL (0.55-1.30); GLOMERULAR FILTRATION RATE > 60.0 (>60); GLUCOSE, FASTING 81 MG/DL (70-100); HDL CHOLESTEROL 62 MG/DL (>40); LDL CHOLESTEROL 112 MG/DL (<100); NON-HDL-C 126 MG/DL; POTASSIUM SERUM 4.2 MEQ/L (3.5-5.1); SODIUM LEVEL 141 MEQ/L (136-145); THYROID STIMULATING HORMONE 0.794 uIU/ML (0.358-3.740); TOTAL PROTEIN 6.9 GM/DL (6.4-8.2); TRIGLYCERIDES LEVEL 68 MG/DL (<150)
[2018-10-24 18:31] LABS: TOTAL 25(OH) VITAMIN D 26.4 NG/ML (30.0-100.0); VITAMIN B12 LEVEL 710 PG/ML
[2018-10-24 18:32] LABS: FOLATE 10.8 NG/ML
[2018-10-24 18:47] LABS: ESTIMATED AVERAGE GLUCOSE 103 MG/DL (60-110); HEMOGLOBIN A1c 5.2 %
== END ==
LOC: M LAB REF 16:38
DX: Z13.9 Encounter for screening, unspecified (principal)
CPT/HCPCS: 82746

== ENCOUNTER → 2019-01-06 | Outpatient (REF) | payer OTHER, MEDICAID ==
[~2019-01-06] MED LIST changes: +BUSP5TA; +BUSP5TA PO; +COLA100C5 PO; +FERR325T3 PO; +FLON1SPR; +GAS-80CH PO; +HYDR-643 PO; +IBUP-1114 PO; +IBUP80TA PO; +LABE10TAB; +LABE20TAB PO; +MAPA500T2 PO; +OMEP40CA2 PO; +OXYC1TAB23 PO; +PRENTAB16 PO; +RANI15TA PO; +REGL10TA6 PO; +TERC0.4C PV; +TUMS500C PO; +URSO300C3 PO; +VIST25CA PO; +VIST50CA PO; +VITA50005; +ZITH250T PO; +ZOLO50TA PO
[2019-01-09 18:42] LABS: HPV HYBRID CAPTURE II Negative (Negative)
== END ==
LOC: M LAB REF 13:15
PROVIDERS: ATTEND Obstetrics & Gynecology
DX: Z12.4 Encounter for screening for malignant neoplasm of cervix (principal)
CPT/HCPCS: 87624; G0123

== ENCOUNTER → 2019-01-17 | Outpatient (CLI) | payer OTHER ==
--- NOTE | 2019-01-17 15:22 | REP ---
Clinical: History of fibroids and prior myomectomy of . Technique: Transabdominal pelvic ultrasound followed by transvaginal examination for better evaluation of the endometrium and adnexa with color Doppler evaluation of the ovaries. Findings: Bladder is unremarkable and measures the 4.2 x 4.8 x 2.9 cm . Enlarged heterogeneous retroflexed uterus measures 10.6 x 6.0 x 4.4 cm . The endometrial complex measures 5.2 mm thickness. Right intramural fibroid measures 1 cm maximal diameter. Left intramural fibroid measures 2.4 cm maximal diameter. Right ovary measures 3.9 x 2.4 x 4.4 cm with multiple cysts/follicles measuring up to 1.9 cm ; R I = 0.51 . Left ovary measures 3.9 x 1.5 x 2.6 cm with multiple follicles measuring up to 11 mm ; R I = 0.69 . Small amount of free fluid in the pelvis is nonspecific and possibly physiologic . Impression: 1. Enlarged heterogeneous myomatous uterus. 2. Presumed physiologic cystic changes to the right ovary. No evidence for torsion. Consider reevaluation in 4-6 weeks to evaluate for resolution. Electronically Signed by Leonel Guevara MD 01/17/2019 03:13 P
== END ==
LOC: M SMT 11:01
PROVIDERS: ATTEND Obstetrics & Gynecology
DX: D25.2 Subserosal leiomyoma of uterus (principal)

== ENCOUNTER 2019-05-22 14:52 | Emergency (ER) | payer MEDICAID, OTHER ==
[~2019-05-22] VITALS: Ht 162.6 cm; Wt 105.5 kg
[~2019-05-22 14:52] MED LIST changes: -OMEP40CA2 PO; +OMEP40CA97 PO; -TERC0.4C PV; +TERC0.4C2 PV
[2019-05-22] MEDS ORDERED: PREN1CHW6 PO (15:16)
[2019-05-22] MEDS ORDERED: ATEN50TA2 PO (15:16)
[2019-05-22 17:17] VITALS: BP 115/73
== END 2019-05-22 17:30 | disposition home or self-care (01) ==
LOC: M ED 14:52
DX: Z32.01 Encounter for pregnancy test, result positive (principal); I10 Essential (primary) hypertension; Z79.899 Other long term (current) drug therapy; Z3A.00 Weeks of gestation of pregnancy not specified